=== PATIENT | female | born 1995 | race Caucasian/White ===

== ENCOUNTER 2017-04-20 01:50 | Emergency (ER) | payer BC ==
[~2017-04-20 01:50] MED LIST: DICY10CA12 PO; ETONMIS VAGRING; LISD30CA4 PO
[2017-04-20 01:54] VITALS: TEMP 37.1; O2SAT 99
[2017-04-20 04:18] LABS: PREG INTERNAL NEGATIVE QC NEG CLEAR BACKGROUND; PREG INTERNAL POSITIVE QC POS CONTROL LINE
--- NOTE | 2017-04-20 04:20 | EMERGENCY ROOM VISIT NOTE ---
History First contact with patient: 01:52 Chief Complaint: ALCOHOL OVERDOSE Stated Complaint: ALCOHOL OVERDOSE Nursing Triage Summary: Pt arrives by BLS for ETOH overdose. Pt uncooperative, refusing to ask questions asked. Pt denies pain. cut noted to pt's upper lip. unsure if she fell History of Present Illness The patient is a 21 year old female who presents to the Emergency Room via BLS for evaluation of an alcohol overdose. The patient was found by EMS outside of a bar. She had a witnessed fall and struck her face on the ground. She has a small laceration to the upper lip. She denies any complaints at this time. She admits to drinking liquor tonight. She denies any drug use. Review of Systems A complete 10 point review of systems was reviewed with the patient with pertinent positives and negatives as per history of present illness. All else were negative. Past Medical/Surgical History Medical Problems: (1) IBS (irritable bowel syndrome) Surgical Problems: (1) H/O wisdom tooth extraction Social History Smoking Status: Never Smoker Alcohol Use: occasionally Housing Status: lives with roommate Occupation Status: [employer] student Current/Historical Medications Scheduled Dicyclomine Hcl (Dicyclomine Hcl), 10 MG PO TID Etonogestrel/Ethinyl Estradiol (Nuvaring), 1 EA VAGRING MONTHLY Lisdexamfetamine Dimesylate (Vyvanse), 30 MG PO DAILY Physical Exam Vital Signs Date Time Temp Pulse Resp B/P (MAP) Pulse Ox O2 Delivery O2 Flow Rate FiO2 04/20/17 07:42 113 16 123/49 98 04/20/17 05:42 98 04/20/17 04:57 97 18 114/65 96 Room Air 04/20/17 01:56 118 04/20/17 01:54 37.1 104 22 133/100 99 Room Air 04/20/17 01:54 99 Room Air Physical Exam VITALS: Vitals are noted on the nurse's note and reviewed by myself. Vital signs stable. GENERAL: This is a 21-year-old female, lying prone in bed, appears to be visibly intoxicated, smells of ETOH. SKIN: There is a subcentimeter non-gaping superficial laceration to the upper lip. Otherwise, no ecchymosis or abrasions. HEAD: Normocephalic atraumatic. EARS: External auditory canals clear. No hemotympanum. EYES: Pupils equal round and reactive to light and accommodation. NOSE: No deformities noted. MOUTH: No loose or chipped teeth. NECK: No cervical spine tenderness. HEART: Regular rate and rhythm without murmurs gallops or rubs. LUNGS: Clear to auscultation bilaterally without wheezes, rales or rhonchi. ABDOMEN: Soft, nontender. MUSCULOSKELETAL: Full range of motion throughout. Strength intact throughout. NEURO: Patient was alert and oriented to person place and time. Speech slurred. Gross sensation intact. Patient cooperative with examiner. Medical Decision & Procedures ER Provider Diagnostic Interpretation: CT HEAD: No acute intracranial hemorrhage. No evidence of intracranial mass, extra- axial fluid collection, or acute territorial infarct. No displaced skull fracture. Retention cyst versus polyp left maxillary sinus. Radiologist: Terrell Del Angel MD Laboratory Results 04/20/17 02:50 Test 04/20/17 02:50 Anion Gap 8.0 mmol/L (3-11) Estimated GFR () 125.1 Estimated GFR (Non- 107.9 BUN/Creatinine Ratio 13.5 (10-20) Calcium Level 7.7 mg/dl (8.5-10.1) Human Chorionic Gonadotropin, Qual NEG (NEG) Ethyl Alcohol mg/dL 257.0 mg/dl (0-3) Medical Decision Differential diagnosis includes alcohol intoxication, drug abuse, head trauma, hypoglycemia, among others. The patient is a 21-year-old female who presents for evaluation of possible alcohol intoxication. The patient was found after a witnessed fall in which she sustained a superficial laceration to her upper lip. A CT of the head was performed due to the history of trauma and was unremarkable. Blood alcohol was found to be 257. The patient was monitored for several hours in the emergency department. When she was more sober, she was discharged home. Head injury instructions were reviewed with the patient and she was advised to stop drinking alcohol. She verbalized understanding and was discharged home in good condition. Medication Reconcilliation Current Medication List: was personally reviewed by me Blood Pressure Screening Patient's blood pressure: Normal blood pressure Impression Primary Impression: Alcoholic intoxication Additional Impression: Head injury Departure Information Dispostion Home / Self-Care Condition GOOD Referrals No Doctor, Assigned (PCP) Patient Instructions [facility]: [employer] Students and Alcohol Related Visits, [facility] Additional Instructions You were evaluated in emergency department for intoxication. This is a sign of Alcohol Abuse and should not be taken lightly. You had a blood alcohol level that was significantly elevated. You were also seen for a head injury. A CT scan of your head did not show any concerning findings. However, you may have a headache, nausea, or dizziness over the next few days. This can be normal. If you have any concerns about your symptoms, you may follow up with [facility] or return here. Over the next 24 hours keep well hydrated and eat light meals. Don't drink any more alcohol. This is important. Please discuss this visit with your Primary Care Provider, [facility] and/or your loved ones. Unless an exceptional circumstance, the Hospital DOES NOT contact anyone during your visit, nor is your Protected Medical Information released to anyone without your approval/request. This means we do not contact your Parents, the Police, [facility], etc. However, you will likely receive a bill from the Hospital and/or your Insurance company, which will usually be sent to the Primary Policy [place] (often one's Parents) If your incident was on campus, or if the Police were involved, they will often contact the University to make them aware of what happened. Often this will result in you being required to take Alcohol Education classes (ie BASICS class) . Please see information given to you at discharge regarding contact for this. If the Police were involved you will likely be cited for public intoxication. Please contact either [facility] Police or the [place] Police for further information. Call 911 or return to Emergency Department if you develop: Passing out, difficulty breathing, many episodes of vomiting, blood in vomit or stool, abdominal pain, fevers, or other severe symptoms. We are always here to help if you feel you need further evaluation or treatment. Problem Qualifiers Primary Impression: Alcoholic intoxication Complication of substance-induced condition: uncomplicated Qualified Codes: F10.920 - Alcohol use, unspecified with intoxication, uncomplicated Additional Impression: Head injury Encounter type: initial encounter Qualified Codes: S09.90XA - Unspecified injury of head, initial encounter
[2017-04-20 05:02] LABS: BLOOD UREA NITROGEN 11 mg/dl (7-18); BUN/CREATININE RATIO 13.5 (10-20); CALCIUM 7.7 mg/dl (8.5-10.1); CARBON DIOXIDE 23 mmol/L (21-32); CHLORIDE 109 mmol/L (98-107); CREATININE 0.78 mg/dl (0.60-1.20); GLUCOSE 95 mg/dl (70-99); POTASSIUM 3.2 mmol/L (3.5-5.1); SODIUM 140 mmol/L (136-145)
--- NOTE | 2017-04-20 06:40 | DIAGNOSTIC IMAGING REPORT ---
CT HEAD WITHOUT CONTRAST (CT) CLINICAL HISTORY: Head trauma. Ethanol intoxication. COMPARISON STUDY: No previous studies for comparison. TECHNIQUE: Axial CT of the brain is performed from the vertex to the skull base. IV contrast was not administered for this examination. A dose lowering technique was utilized adhering to the principles of ALARA. CT DOSE: FINDINGS: No intra or extra-axial mass lesions are visualized. There is no CT evidence of acute cortical infarction. There is no evidence of midline shift. There is no acute hemorrhage. No calvarial fractures are visualized. There are patchy white matter hypodensities likely on a small vessel basis. There is no evidence of pathologic ventricular dilatation. There is a left maxillary sinus polyp versus retention cyst. IMPRESSION: No acute intracranial findings Electronically signed by: Herber Jimenez M.D. 04/20/2017 6:39 AM Dictated Date/Time: 04/20/2017 6:38 AM
[2017-04-20 07:42] VITALS: BP 123/49; PULSE 113; O2SAT 98
== END 2017-04-20 07:42 | disposition home or self-care (01) ==
LOC: EDBD 01:50 → C.EDA 01:51
DX: S09.90XA Unspecified injury of head, initial encounter (principal); W19.XXXA Unspecified fall, initial encounter; F10.129 Alcohol abuse with intoxication, unspecified; Y90.8 Blood alcohol level of 240 mg/100 ml or more; K58.9 Irritable bowel syndrome, unspecified; Z79.899 Other long term (current) drug therapy